=== PATIENT | male | born 1985 | race Caucasian/White ===

== ENCOUNTER 2019-02-18 15:42 | Outpatient (CLI) | payer OTHER ==
--- NOTE | 2019-02-21 20:36 | MRI Report ---
Reason: PAIN IN RIGHT KNEE Procedure Date: 02/18/2019 Accession Number: [id number] / [id number] Procedure: MRI - Knee RT W/O CPT Code: FULL RESULT: EXAM: RIGHT KNEE MRI WITHOUT CONTRAST EXAM DATE: 02/18/2019 05:39 PM. CLINICAL HISTORY: Pain in right knee. COMPARISON: None. TECHNIQUE: Multiplanar, multisequence T1-weighted and fluid-sensitive sequences of the knee without contrast. Other: None. FINDINGS: Bones: No fractures or subluxations. No marrow edema. No bone lesions. Articular Cartilage: Unremarkable. Medial Meniscus: The medial meniscus is intact. Lateral Meniscus: The lateral meniscus is intact. Cruciate Ligaments: There is fluid signal within the substance of the anterior cruciate ligament which may indicate low-grade partial-thickness tear. The posterior cruciate ligament is intact. Collateral Ligaments: The medial collateral and lateral collateral ligamentous structures are intact. Tendons: The quadriceps, patellar, semimembranosus, and popliteus tendons are unremarkable. Musculature: No edema or fatty atrophy. Other: There is a small joint effusion. There is fluid in the infrapatellar bursa inferior to the infrapatellar fat pad which may indicate infrapatellar bursitis. The infrapatellar fat pad appears unremarkable. No loose bodies. The medial and lateral retinacula are intact. . IMPRESSION: 1. Findings suggestive of a prior low-grade partial-thickness tear of the ACL. The differential diagnosis includes early mucoid degeneration. 2. Small joint effusion. Possible infrapatellar bursitis. RADIA
== END 2019-02-18 15:43 | disposition home or self-care (01) ==
LOC: DI 15:42
DX: M25.561 Pain in right knee (principal); M25.461 Effusion, right knee

== ENCOUNTER 2022-12-22 08:06 | Outpatient (CLI) | payer OTHER ==
--- NOTE | 2022-12-22 12:46 | MRI Report ---
PROCEDURE: CERVICAL SPINE WO INDICATIONS: PARESTHESIA OF SKIN TECHNIQUE: Noncontrast sagittal T1 spin echo and T2 fast spin echo, sagittal STIR, foraminal oblique sagittal T2 fast spin echo, and axial gradient echo or T2 fast spin echo through the cervical spine. COMPARISON: None. FINDINGS: Image quality: Excellent. Alignment and Curvature: There is normal bony alignment. Bone Marrow: Marrow demonstrates normal overall signal. Spinal Cord: Visualized spinal cord has normal size and signal. No cerebellar tonsillar herniation. Paraspinous Soft Tissues: No paravertebral masses. Prevertebral soft tissues are normal in thicknes s. C2-C3: Normal in appearance. C3-C4: No central canal stenosis. Facet and uncovertebral arthropathy resulting in mild right neuro foraminal stenosis. C4-C5: No central canal stenosis. Facet and uncovertebral arthropathy resulting in mild bilateral ne uroforaminal stenosis. C5-C6: No central canal stenosis. Facet and uncovertebral arthropathy resulting in mild right neurof oraminal stenosis. C6-C7: Normal in appearance. C7-T1: Normal in appearance. IMPRESSION: Mild degenerative changes of the cervical spine as described above with mild neuroforaminal stenosis on the right at C3-C4, bilaterally at C4-C5 and on the right at C5-C6. No central canal stenosis. Reviewed by: Juno Locke MD on 12/22/2022 12:44 PM PDT Approved by: Juno Locke MD on 12/22/2022 12:44 PM PDT Station ID: [id number]
== END 2022-12-22 08:07 | disposition home or self-care (01) ==
LOC: DI 08:06
PROVIDERS: ATTEND General Practice
DX: M47.812 Spondylosis without myelopathy or radiculopathy, cervical region (principal); M48.02 Spinal stenosis, cervical region